=== PATIENT | female | born 1990 | race Caucasian/White ===

== ENCOUNTER 2021-04-02 14:30 | Emergency (ER) | payer MEDICAID ==
[~2021-04-02] VITALS: Ht 175.3 cm; Wt 95.0 kg
[2021-04-02] MEDS ORDERED: FLUO10CA24 PO (14:37)
[2021-04-02] MEDS ORDERED: KETOROLAC TROMETHAMINE 30 MG/ML VIAL IM ONE (15:30)
[2021-04-02 17:22] VITALS: BP 118/70
== END 2021-04-02 17:30 | disposition home or self-care (01) ==
LOC: EMS 14:36
DX: S92.412A Displaced fracture of proximal phalanx of left great toe, initial encounter for closed fracture (principal); F32.9 Major depressive disorder, single episode, unspecified; Z88.0 Allergy status to penicillin; W18.40XA Slipping, tripping and stumbling without falling, unspecified, initial encounter; Y93.89 Activity, other specified; Y92.89 Other specified places as the place of occurrence of the external cause; Y99.8 Other external cause status
CPT/HCPCS: 73630; 96372; 99283; J1885